=== PATIENT | male | born 1995 | race Caucasian/White ===

== ENCOUNTER 2023-09-30 22:01 | Emergency (ER) | payer OTHER, SELFPAY ==
[2023-09-30 22:03] VITALS: BP 101/81
[2023-09-30 22:39] VITALS: BMI 37.2
[2023-09-30 22:41] VITALS: BP 107/43
[2023-09-30] MEDS: NSS 1000 IV (22:49)
[2023-09-30 22:52] LABS: ALT (SGPT) 63 U/L (0-50); AST (SGOT) 31 U/L (17-59); Albumin 4.6 g/dl (3.5-5.0); Alkaline Phosphatase 75 U/L (38-126); Blood Urea Nitrogen 14 mg/dl (9-20); Calcium 9.6 mg/dl (8.4-10.2); Carbon Dioxide 23 mmol/L (22-30); Chloride 104 mmol/L (98-107); Estimated Creatinine Clearance 125 ml/min; Glucose 174 mg/dl (70-99); Potassium 3.4 mmol/L (3.5-5.1); Sodium 137 mmol/L (135-145); Total Bilirubin 0.6 mg/dl (0.2-1.3); eGFR > 60.00
[2023-09-30 23:00] LABS: % Basophils 0.8 % (0-2); % Eosinophils 2.3 % (0-6); % Immature Granulocytes 0.4 % (0-0.5); % Lymphocytes 38.5 % (20.5-51.1); % Monocytes 7.4 % (1.7-9.3); % Neutrophils 50.6 % (42.2-75.2); Absolute Basophils 0.1 10^3/uL (0-0.2); Absolute Eosinophils 0.2 10^3/uL (0-0.7); Absolute Lymphocytes 3.2 10^3/uL (1.2-3.4); Absolute Monocytes 0.6 10^3/uL (0.1-0.6); Absolute Neutrophils 4.2 10^3/uL (1.4-6.5); Hematocrit 43.6 % (39.0-52.0); Hemoglobin 16.3 g/dL (13.0-18.0); Mean Corp Hgb Conc. 37.4 g/dL (33.0-37.0); Mean Corpuscular Hgb 31.4 pg (27.0-31.0); Nucleated Red Blood Cells % 0 % (-); Platelet Count 286 10^3/uL (130-400); Red Blood Cell Count 5.19 10^6/uL (4.70-6.10); Red Cell Dist. Width 11.6 % (11.5-14.5); White Blood Cell Count 8.3 10^3/uL (4.8-10.8)
[2023-09-30 23:06] VITALS: BP 98/52
[2023-09-30 23:13] VITALS: BP 97/48
[2023-09-30 23:14] LABS: Lactic Acid 2.7 mmol/L (0.7-2.0)
[2023-09-30 23:15] LABS: Acetaminophen < 10 ug/ml (10-30); Salicylate < 1.0 mg/dl (2.0-20.0)
[2023-09-30 23:16] LABS: Alcohol None Detected
[2023-09-30] MEDS: ATIVAN 1 MG IV (23:22)
[2023-09-30 23:27] VITALS: BP 130/52
[2023-09-30 23:57] LABS: Urine Albumin Negative (Neg - Trace); Urine Bilirubin Negative (Negative); Urine Character Clear (Clear); Urine Color Yellow; Urine Glucose Negative (Negative); Urine Ketone Negative (Negative); Urine Leukocyte Negative (Negative); Urine Nitrite Negative (Negative); Urine Occult Blood Negative (Negative); Urine Specific Gravity 1.015 (<1.030); Urine Urobilinogen Negative (Neg - 1+); Urine pH 6.5 (5.0-9.0)
[2023-10-01] VITALS: BP 93/53
[2023-10-01 00:09] LABS: Amphetamines Negative (Negative); Barbiturates Negative (Negative); Benzodiazepines Negative (Negative); Buprenorphine Negative (Negative); Cocaine Negative (Negative); Marijuana Positive (Negative); Methadone Negative (Negative); Methamphetamines Negative (Negative); Opiates Negative (Negative); Phencyclidine Negative (Negative); Tricyclic Antidepressants Negative (Negative)
[2023-10-01] MEDS: NSS 1000 IV (00:19)
--- NOTE | 2023-10-01 00:29 | ED.GENMED ---
History of Present Illness
General
Chief Complaint: Overdose Unintentional
Source: patient
Exam Limitations: none
Time Seen by Provider: 09/30/23 22:51
Travel History
Have you had any contact with someone who has COVID-19?: No
Do you have any symptoms of coronavirus? Fever > 100 degrees, chills, cough, shortness of breath, sore throat, loss of taste or smell, muscle aches, or headache?: No
History of Present Illness
History of Present Illness:
Pleasant 28-year-old male presents with acute THC intoxication. He states that he ate a cookie that was laced with THC. According to the family, he has been very restless since 5 PM. Patient has had muscle twitching since the ingestion. Denies
chest pain or shortness of breath. Accompanied by mother
Past History
Past History
ED Past Medical History: Asthma and Other ('Stomach issues' that was diagnosed as irritable bowel)
ED Past Surgical History: Orthopedic
Social History
Tobacco: Non-smoker
Alcohol: Occasional
Drug: None
Personal: Single
Living: with family
Review of Systems
Review of Systems
Allergies reviewed?: Yes
All Other Systems: Not applicable
Constitutional: Reports sleep disturbance
Neurological: Reports weakness
Phy Exam
General Physical Exam
General Presentation: moderate distress
General Skin: warm and dry
General Habitus: normal
General Mental: alert
General Hydration: appears well hydrated
ENT Exam
ENT Exam: EOMI, pharynx normal, neck supple and normocephalic
Eye Exam
Eye Exam: PERRL, cornea clear and conjunctiva normal
Cardiovascular Exam
Cardiovascular Exam: tachycardia
Pulmonary Exam
Pulmonary Exam: lungs clear and no respiratory distress
Gastrointestinal Exam
Gastrointestinal Exam: normal bowel sounds, non tender, soft, no organomegaly, no pulsatile mass and non distended
Neurological Exam
Neurological Exam: speech normal
Motor
Other Movement Disorders: myoclonic jerking
Musculoskeletal Exam
Musculoskeletal Exam: full ROM and no edema
Skin Exam
Skin Exam: normal color, warm/dry, no rash and no petechia
Psychiatric Exam
Psychiatric Exam: normal mood/affect
Course
Orders/Labs/Results
Orders:
Orders
09/30/23 22:09
Electrocardiogram (*1) Urgent
Reason for Study: Tachycardia
Cardiology Consult: Unknown
09/30/23 22:10
EKG- Treatment ONCE
09/30/23 22:22
Complete Blood Count/With Diff Urgent
Comprehensive Metabolic Panel Urgent
09/30/23 22:23
Urine Drug Abuse Screen Urgent
Date Specimen was Collected: 09/30/23
Time Specimen was Collected: 22:10
09/30/23 22:37
0.9% Sodium Chloride 1000 ml [Nss] 1,000 ml IV BOLUS
09/30/23 22:38
Electrocardiogram (*1) Urgent
Reason for Study: Tachycardia
EKG- Treatment ONCE
09/30/23 22:47
Acetaminophen Urgent
Alcohol Urgent
Lactic Acid Urgent
Salicylate Urgent
Blood Culture Q30M
MARGARITA Source: Blood/Venous
Specimen Description:
Blood Culture Q30M
MARGARITA Source: Blood/Venous
Specimen Description:
09/30/23 23:20
Lorazepam [Ativan] 2 mg .ROUTE .STK-MED ONE
09/30/23 23:21
Lorazepam [Ativan] 1 mg IV NOW STA
09/30/23 23:47
Urinalysis Reflex To Culture Urgent
Date Specimen was Collected: 09/30/23
Time Specimen was Collected: 23:46
10/01/23 00:18
0.9% Sodium Chloride 1000 ml [Nss] 1,000 ml IV BOLUS
10/01/23 00:29
Urine Drug Abuse Screen Urgent
Date Specimen was Collected: 10/01/23
Abnormal Lab Results
09/30/23 09/30/23 09/30/23
22:22 22:23 22:47
MCH 31.4 H pg
(27.0-31.0)
MCHC 37.4 H g/dL
(33.0-37.0)
Potassium 3.4 L mmol/L
(3.5-5.1)
Glucose 174 H mg/dl
(70-99)
Lactic Acid 2.7 H mmol/L
(0.7-2.0)
ALT 63 H U/L
(0-50)
Salicylates < 1.0 L mg/dl
(2.0-20.0)
Acetaminophen < 10 L ug/ml
(10-30)
U Marijuana (THC) Screen Positive H
(Negative)
09/30/23 22:22
09/30/23 22:22
Vital Signs
Initial and Last Documented VS:
Initial Vital Signs
Temp Pulse Resp BP Pulse Ox
100.4 F H 148 28 101/81 95
09/30/23 22:03 09/30/23 22:03 09/30/23 22:03 09/30/23 22:03 09/30/23 22:03
Last Documented Vital Signs
Temp Pulse Resp BP Pulse Ox
99.8 F 111 26 93/53 93
09/30/23 23:11 10/01/23 00:30 10/01/23 00:30 10/01/23 00:00 10/01/23 00:30
*Critical Care Note
Total Time (30-74mins, 75-104mins- exclusive of procedures): Not Applicable
ED Attending Note
-
Portions of this chart may have been created with voice recognition software.� Occasional wrong word or��sound alike� substitutions may have occurred due to the inherent limitations of voice recognition software.
Discharge Plan
Departure
Discharge Problem:
Tetrahydrocannabinol (THC) use disorder, mild, abuse
Instructions: Accidental Overdose (DC)
Prescriptions:
No Action
No Current Medications
0
Referrals:
Harpal Tenorio MD [Family Provider] -
Activity Restrictions/Additional Instructions:
It was a pleasure meeting you and taking part in your care. We hope for your continued healing and wellness.
Please read discharge instructions in their entirety. However, they are for general education and may not describe your exact diagnosis at discharge. Information on your ER visit and medical conditions were discussed with you along with appropriate
follow up information...
If indicated, please take your medications as instructed and indicated on discharge paperwork.
Please schedule a follow up appointment as directed. Call to schedule an appointment
Please return to the emergency department with ANY change in, persisting, or worsening of symptoms. If any of your symptoms do not improve, or persist, or become more severe within 6-12 hours, please return to the emergency department for further
care.
Please return to the emergency department if you develop a headache, neck pain/stiffness, fever greater than 100.4F, chest pain, shortness of breath, persistent nausea, vomiting, slurred speech, difficulty walking, numbness/tingling, weakness, signs
of infection or any other symptoms that are worrisome to you.
If you have any questions or concerns please do not hesitate to call the Hospital at or E-mail me directly at [email or web address]
Interventions
Interventions:
*Risk Screen - Suicide Last Done: 09/30/23 22:03
*General Assessment Last Done: 09/30/23 22:03
*Neglect/Abuse Screening Last Done: 09/30/23 22:03
ED- Fall Risk Assessment Last Done: 09/30/23 22:03
*ED COVID-19 Vaccine History Last Done: 09/30/23 22:03
ED- Cardiac Assessment Last Done: 09/30/23 22:52
ED- Neurological Assessment Last Done: 09/30/23 23:12
ED-Psychological Assessment Last Done: 09/30/23 22:52
ED- Pulmonary Assessment Last Done: 09/30/23 22:52
Discharge Date and Time
Print Language: PERSIAN
[2023-10-01 01:00] VITALS: BP 92/53
[2023-10-01 02:00] VITALS: BP 113/63
== END 2023-10-01 02:25 | disposition home or self-care (01) ==
LOC: EMR 22:01
PROVIDERS: Emergency Medicine; EMERGENCY PHYSICIAN Student in an Organized Health Care Education/Training Program; FAMILY PHYSICIAN Family Medicine
DX: F12.10 Cannabis abuse, uncomplicated (principal); G25.3 Myoclonus; R53.1 Weakness; R00.0 Tachycardia, unspecified; J45.909 Unspecified asthma, uncomplicated; K58.9 Irritable bowel syndrome, unspecified
CPT/HCPCS: 99284; 96374; 96361 ×2; 80053; 80143; 80179; 80306; 81003; 82077; 83605; 85025; 87040; 93005